=== PATIENT | female | born 2005 | race Caucasian/White ===

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

== ENCOUNTER → 2024-06-02 11:10 | Outpatient (BNVA) | payer BC, MEDICAID, SELFPAY ==
[2024-02-23 10:00] VITALS: BP 125/83; BMI 32.4
== END ==
PROVIDERS: PCP Family Medicine; Visit Provider Nurse Practitioner
DX: J02.9 Acute pharyngitis, unspecified (principal)
CPT/HCPCS: 87070; 87880

== ENCOUNTER → 2025-03-22 11:34 | Outpatient (BNVA) | payer BC, MEDICAID, SELFPAY ==
[2024-02-23 10:00] VITALS: BP 125/83; BMI 32.4
== END ==
PROVIDERS: PCP Family Medicine; Visit Provider Family Medicine
DX: K58.2 Mixed irritable bowel syndrome (principal); R53.82 Chronic fatigue, unspecified; R10.9 Unspecified abdominal pain; G89.29 Other chronic pain; E55.9 Vitamin D deficiency, unspecified; R79.89 Other specified abnormal findings of blood chemistry; R30.9 Painful micturition, unspecified
CPT/HCPCS: 80053; 81000; 82306; 82607; 84439; 84443; 85025